=== PATIENT | female | born 1965 | race Caucasian/White ===

== ENCOUNTER 2020-02-04 22:25 | Emergency (ER) | payer OTHER ==
[~2020-02-04] VITALS: Ht 157.5 cm; Wt 100.0 kg
[2020-02-04 22:30] VITALS: BP 183/118
[2020-02-04] MEDS ORDERED: ketorolac trometh inj. 60 MG/2 ML VIAL IM ONE (23:00)
[2020-02-04] MEDS ORDERED: IBUP-1984 PO (23:02)
[2020-02-04] MEDS ORDERED: HYDR-3965 PO (23:02)
[2020-02-04] MEDS ORDERED: CYCL-1 PO (23:02)
== END 2020-02-04 23:17 | disposition home or self-care (01) ==
LOC: ER 22:25
DX: M54.42 Lumbago with sciatica, left side (principal); J45.909 Unspecified asthma, uncomplicated; G89.29 Other chronic pain; F17.200 Nicotine dependence, unspecified, uncomplicated; Z88.2 Allergy status to sulfonamides; Z79.899 Other long term (current) drug therapy
CPT/HCPCS: 96372; 99283; J1885

== ENCOUNTER 2020-09-10 14:40 | Emergency (ER) | payer OTHER ==
[~2020-09-10] VITALS: Ht 157.5 cm; Wt 109.1 kg
[~2020-09-10 14:40] MED LIST: CYCL-1 PO
[2020-09-10 14:43] VITALS: BP 176/100
[2020-09-10] MEDS ORDERED: CYCL-394 PO (15:17)
[2020-09-10] MEDS ORDERED: ketorolac trometh. 30mg/ml inj. IM ONE (15:20)
[2020-09-10] MEDS ORDERED: ketorolac tromethamine 15mg/ml inj. IM ONE (15:20)
== END 2020-09-10 15:52 | disposition home or self-care (01) ==
LOC: ER 14:41
DX: S39.012A Strain of muscle, fascia and tendon of lower back, initial encounter (principal); R06.02 Shortness of breath; J45.909 Unspecified asthma, uncomplicated; G89.29 Other chronic pain; Z87.11 Personal history of peptic ulcer disease; Z72.89 Other problems related to lifestyle; Z88.2 Allergy status to sulfonamides; Z79.899 Other long term (current) drug therapy; X58.XXXA Exposure to other specified factors, initial encounter; Y93.89 Activity, other specified; Y92.89 Other specified places as the place of occurrence of the external cause; Y99.8 Other external cause status
CPT/HCPCS: 96372; 99283; J1885